=== PATIENT | female | born 1990 | race Caucasian/White ===

== ENCOUNTER 2021-04-21 08:00 | Outpatient (CLI) | payer OTHER | END 2021-04-21 08:03 | disposition home or self-care (01) | LOC: PPH VACUNA 08:00 | PROVIDERS: ATTEND Emergency Medicine Pediatric Emergency Medicine | DX: Z23 Encounter for immunization (principal) ==

== ENCOUNTER 2022-03-06 08:47 | Outpatient (CLI) | payer OTHER | END 2022-03-06 08:57 | disposition home or self-care (01) | LOC: PPH VACUNA 08:47 | PROVIDERS: ATTEND Emergency Medicine Pediatric Emergency Medicine | DX: Z23 Encounter for immunization (principal) ==